=== PATIENT | male | born 1945 | race Caucasian/White ===

== ENCOUNTER 2020-11-23 16:41 | Observation (INO) | payer MEDICARE ==
[2020-11-23 17:17] LABS: #Eosinphils 0.4 10x3/uL (0.0-0.5); #Monocytes 1.8 10x3/uL (0.0-1.1); #Neutrophils 6.6 10x3/uL (1.5-8.4); %Basophils 0.4 % (0.0-2.0); %Eosinophils 3.8 % (0.0-6.0); %Lymphocytes 18.7 % (18.0-47.0); %Monocytes 16.3 % (0.0-10.0); %Neutrophils 60.3 % (40.0-75.0); Hemoglobin 12.9 g/dL (13.5-17.5); Mean Corpuscular HGB CONC 33.4 g/dL (32.0-36.0); Mean Corpuscular Hemoglobin 32.9 pg (27.0-33.0); Mean Corpuscular Volume 98.5 fl (81.2-95.1); Mean Platelet Volume 9.2 fl (7.4-10.4); Platelet Count 217 10x3/uL (150-450); RBC Distribution Width 14.8 % (11.5-14.5); Red Blood Cell (RBC) Count 3.92 10x6/uL (4.32-5.72)
[2020-11-23 17:28] LABS: ALT (SGPT) 13 U/L (8-55); AST (SGOT) 20 U/L (5-34); Albumin 4.3 g/dL (3.4-4.8); Alkaline Phosphatase 41 U/L (40-110); Anion Gap 15 mmol/L (10-20); BUN (Urea Nitrogen) 40 mg/dL (8.4-25.7); Bilirubin, Total 0.6 mg/dL (0.2-1.2); Calc. Creatinine Clearance 0 mL/min (70-130); Calcium 9.1 mg/dL (7.8-10.44); Carbon Dioxide 22 mmol/L (23-31); Chloride 101 mmol/L (98-107); Globulin 2.5 g/dL (2.4-3.5); Glucose 95 mg/dL (83-110); Potassium 4.2 mmol/L (3.5-5.1); Protein, Total 6.8 g/dL (5.8-8.1); Sodium 134 mmol/L (136-145)
[2020-11-23 17:29] LABS: Prothrombin Time 11.4 sec (9.5-12.1)
[2020-11-23 18:16] LABS: Bilirubin Neg (Negative); Blood, Urine Negative (Negative); Clarity Clear (Clear); Glucose, Urine (Dipstick) Normal (Negative); Ketone, Urine Negative (Negative); Leukocyte Negative (Negative); Nitrite Negative (Negative); Protein, Urine (Dipstick) Negative (Neg-Trace); Specific Gravity, Urine 1.005 (1.002-1.036); Urobilinogen Normal mg/dL (Less than 2)
[2020-11-23] MEDS ORDERED: Aspirin Chewable 81 MG TAB ONE (19:24)
[2020-11-23] MEDS ORDERED: Senokot S 8.6-50 MG TAB PO PRN (21:17)
[2020-11-23] MEDS ORDERED: Ondansetron PF 4 MG/2 ML Vial IVP PRN (21:17)
[2020-11-23] MEDS ORDERED: Acetaminophen 325 MG TAB PO PRN (21:17)
[2020-11-23] MEDS ORDERED: Guaifenesin DM 100-10/5 ML UDCUP PO PRN (21:17)
[2020-11-23] MEDS ORDERED: Calcium Carbonate 500 MG ChewTAB PO PRN (21:17)
[2020-11-23] MEDS ORDERED: ACETAMINOPHEN WITH CODEINE PO PRN (21:19)
[2020-11-23] MEDS ORDERED: Ventolin HFA Inhaler 60 PUFF INHALER INH PRN (21:19)
[2020-11-23] MEDS ORDERED: Sodium Chloride 0.9% 500 ML IV SCH (21:30)
[2020-11-24 05:59] VITALS: BMI 23.3
[2020-11-24 06:20] LABS: Anion Gap 13 mmol/L (10-20); BUN (Urea Nitrogen) 36 mg/dL (8.4-25.7); Calc. Creatinine Clearance 40 mL/min (70-130); Calcium 9.2 mg/dL (7.8-10.44); Carbon Dioxide 22 mmol/L (23-31); Cardiac Risk 2.6 (Less than 4.5); Chloride 106 mmol/L (98-107); Cholesterol 82 mg/dl (< 200 Desired); Glucose 97 mg/dL (83-110); HDL Cholesterol 31 mg/dL (>60 Neg Risk); LDL Cholesterol, Calculated 32 mg/dL; Potassium 3.8 mmol/L (3.5-5.1); Sodium 137 mmol/L (136-145); Triglycerides 93 mg/dL (Less than 150)
[2020-11-24] MEDS ORDERED: FLUOROMETHOLONE EA EYE SCH (09:00)
[2020-11-24] MEDS ORDERED: Topiramate 25 MG TAB PO SCH (09:00)
[2020-11-24] MEDS ORDERED: Enoxaparin Sodium 40 MG/0.4 ML SYRINGE SC SCH (09:00)
[2020-11-24] MEDS ORDERED: Atenolol 25 MG TAB PO SCH (09:00)
[2020-11-24] MEDS ORDERED: Fenofibrate 48 MG TAB PO SCH (09:00)
[2020-11-24] MEDS ORDERED: Gabapentin 300 MG CAP PO SCH (09:00)
[2020-11-24] MEDS ORDERED: [UNRECOGNIZED DRUG - OTHER] INH SCH (09:00)
[2020-11-24] MEDS ORDERED: Sodium Chloride 0.9% 1,000 ML IV SCH (09:30)
[2020-11-24] MEDS ORDERED: ACETAMINOPHEN WITH CODEINE PO PRN (12:30)
[2020-11-24 13:08] LABS: SARS-CoV-2 PCR by NAA Not Detected (NotDetected)
[2020-11-24] MEDS ORDERED: Atorvastatin Calcium 10 MG TAB PO SCH (21:00)
[2020-11-24 22:35] VITALS: BP 116/72; TEMP 97.1
== END 2020-11-24 17:00 | disposition home or self-care (01) ==
LOC: CSHERS 16:41 → CSHTELE 22:11
PROVIDERS: ADMIT Student in an Organized Health Care Education/Training Program; ATTEND Internal Medicine
DX: G45.9 Transient cerebral ischemic attack, unspecified (principal); N18.32 Chronic kidney disease, stage 3b; Z79.899 Other long term (current) drug therapy; K31.84 Gastroparesis; K26.9 Duodenal ulcer, unspecified as acute or chronic, without hemorrhage or perforation; G89.4 Chronic pain syndrome; E78.5 Hyperlipidemia, unspecified; Z20.822 Contact with and (suspected) exposure to COVID-19
CPT/HCPCS: 70450; 71045; 74176; 80048; 80053; 80061; 81003; 84443; 84484; 85025; 85610; 85730; 93005; 93306; 93880; 96372; 97116; 97139; 99285; G0378 ×2; U0003; U0005; 36415; 87635; J1650; J7030

== ENCOUNTER 2020-12-20 09:05 | Outpatient (CLI) | payer MEDICARE | END 2020-12-20 09:06 | disposition home or self-care (01) | LOC: CSHRAD 09:05 | PROVIDERS: ATTEND Internal Medicine | DX: K21.00 Gastro-esophageal reflux disease with esophagitis, without bleeding (principal) | CPT/HCPCS: 74018 ==

== ENCOUNTER 2022-05-23 17:30 | Inpatient (IN) | payer MEDICARE ==
[2022-05-23 19:40] LABS: #Basophils 0.1 10x3/uL (0.0-0.2); #Monocytes 0.9 10x3/uL (0.0-1.1); #Neutrophils 5.9 10x3/uL (1.5-8.4); %Basophils 0.6 % (0.0-2.0); %Eosinophils 0.2 % (0.0-6.0); %Lymphocytes 17.5 % (18.0-47.0); %Monocytes 10.3 % (0.0-10.0); Hemoglobin 14.2 g/dL (13.5-17.5); Mean Corpuscular HGB CONC 34.5 g/dL (32.0-36.0); Mean Corpuscular Hemoglobin 34.6 pg (27.0-33.0); Mean Corpuscular Volume 100.5 fl (81.2-95.1); Mean Platelet Volume 9.8 fl (7.4-10.4); Platelet Count 255 10x3/uL (150-450); RBC Distribution Width 12.3 % (11.5-14.5); White Blood Cell (WBC) Count 8.4 10x3/uL (3.5-10.5)
[2022-05-23 20:05] LABS: ALT (SGPT) 16 U/L (8-55); AST (SGOT) 28 U/L (5-34); Albumin 4.6 g/dL (3.4-4.8); Alkaline Phosphatase 35 U/L (40-110); Anion Gap 20 mmol/L (10-20); BUN (Urea Nitrogen) 37 mg/dL (8.4-25.7); Bilirubin, Total 0.4 mg/dL (0.2-1.2); CK (CPK) 142 U/L (30-200); Calc. Creatinine Clearance 0 mL/min (70-130); Calcium 10.2 mg/dL (7.8-10.44); Carbon Dioxide 19 mmol/L (23-31); Chloride 104 mmol/L (98-107); Estimated GFR 45; Globulin 3.5 g/dL (2.4-3.5); Glucose 84 mg/dL (83-110); Potassium 4.6 mmol/L (3.5-5.1); Protein, Total 8.1 g/dL (5.8-8.1); Sodium 138 mmol/L (136-145)
[2022-05-23 21:20] LABS: Bilirubin Neg (Negative); Blood, Urine 250 (Negative); Clarity Clear (Clear); Glucose, Urine (Dipstick) Normal (Negative); Ketone, Urine 15 mg/dL (Negative); Leukocyte Negative (Negative); Nitrite Negative (Negative); Protein, Urine (Dipstick) 100 mg/dl (Neg-Trace); Urobilinogen Normal mg/dL (Less than 2)
[2022-05-23] MEDS ORDERED: Acetaminophen/Codeine 30-300mg Tablet ONE (21:28)
[2022-05-23 21:45] LABS: Bacteria/HPF Rare-Few HPF (None Seen); Squamous Epithelial 0-3 HPF (0-3)
[2022-05-23] MEDS ORDERED: Acetaminophen 325 MG TAB ONE (22:10)
[2022-05-23] MEDS ORDERED: Cefepime 2 GM VIAL ONE (22:30)
[2022-05-23 22:48] LABS: Lactic Acid 1.2 mmol/L (0.5-2.2)
[2022-05-24 00:25] VITALS: BMI 21.2
[2022-05-24] MEDS ORDERED: Sodium Chloride 0.9% 1,000 ML IV SCH (01:30)
[2022-05-24] MEDS ORDERED: Enoxaparin Sodium 40 MG/0.4 ML SYRINGE SC SCH (01:30)
[2022-05-24 05:06] LABS: #Basophils 0.1 10x3/uL (0.0-0.2); #Eosinphils 0.9 10x3/uL (0.0-0.5); #Monocytes 1.1 10x3/uL (0.0-1.1); #Neutrophils 4.1 10x3/uL (1.5-8.4); %Basophils 0.6 % (0.0-2.0); %Eosinophils 11.1 % (0.0-6.0); %Lymphocytes 27.1 % (18.0-47.0); %Monocytes 12.9 % (0.0-10.0); %Neutrophils 47.9 % (40.0-75.0); Hemoglobin 14.7 g/dL (13.5-17.5); Mean Corpuscular Hemoglobin 34.4 pg (27.0-33.0); Mean Corpuscular Volume 101.2 fl (81.2-95.1); Mean Platelet Volume 9.6 fl (7.4-10.4); Platelet Count 226 10x3/uL (150-450); RBC Distribution Width 12.3 % (11.5-14.5); Red Blood Cell (RBC) Count 4.27 10x6/uL (4.32-5.72); White Blood Cell (WBC) Count 8.5 10x3/uL (3.5-10.5)
[2022-05-24 05:09] LABS: Anion Gap 17 mmol/L (10-20); BUN (Urea Nitrogen) 32 mg/dL (8.4-25.7); Calc. Creatinine Clearance 38 mL/min (70-130); Calcium 9.2 mg/dL (7.8-10.44); Carbon Dioxide 17 mmol/L (23-31); Chloride 107 mmol/L (98-107); Estimated GFR 54; Glucose 72 mg/dL (83-110); Magnesium 1.7 mg/dL (1.6-2.6); Potassium 3.9 mmol/L (3.5-5.1); Sodium 137 mmol/L (136-145)
[2022-05-24] MEDS ORDERED: Acetaminophen 325 MG TAB PO PRN (08:33)
[2022-05-24] MEDS ORDERED: Acetaminophen 650 MG Suppository PR PRN (08:33)
[2022-05-24] MEDS ORDERED: Topiramate 25 MG TAB PO SCH (09:00)
[2022-05-24] MEDS ORDERED: Fenofibrate 48 MG TAB PO SCH (09:00)
[2022-05-24] MEDS ORDERED: Gabapentin 100 MG CAP PO SCH (09:00)
[2022-05-24] MEDS ORDERED: BENAZEPRIL HCL 20 MG PO PRN (12:01)
[2022-05-24 15:16] VITALS: BP 145/69; TEMP 98.5
[2022-05-24] MEDS ORDERED: Aspirin 81 mg Enteric Coated Tablet PO SCH (21:00)
[2022-05-24] MEDS ORDERED: Acetaminophen/Codeine 30-300mg Tablet PO SCH (21:00)
[2022-05-25] MEDS ORDERED: Rosuvastatin 20 MG TAB PO SCH (09:00)
[2022-05-25] MEDS ORDERED: Atenolol 25 MG TAB PO SCH (09:00)
== END 2022-05-24 15:05 | disposition home or self-care (01) | DRG 92 ==
LOC: CSHERS 17:30 → CSHTELE 05-24
PROVIDERS: ADMIT Family Medicine; ATTEND Internal Medicine
DX: G92.8 Other toxic encephalopathy (principal); I67.89 Other cerebrovascular disease; I12.9 Hypertensive chronic kidney disease with stage 1 through stage 4 chronic kidney disease, or unspecified chronic kidney disease; G89.29 Other chronic pain; G43.909 Migraine, unspecified, not intractable, without status migrainosus; J44.9 Chronic obstructive pulmonary disease, unspecified; F41.9 Anxiety disorder, unspecified; I73.9 Peripheral vascular disease, unspecified; E78.5 Hyperlipidemia, unspecified; G47.33 Obstructive sleep apnea (adult) (pediatric); I77.9 Disorder of arteries and arterioles, unspecified; N18.30 Chronic kidney disease, stage 3 unspecified; Z86.73 Personal history of transient ischemic attack (TIA), and cerebral infarction without residual deficits; Z98.890 Other specified postprocedural states; Z90.49 Acquired absence of other specified parts of digestive tract; Z87.891 Personal history of nicotine dependence; Z88.1 Allergy status to other antibiotic agents; Z88.8 Allergy status to other drugs, medicaments and biological substances; Z79.82 Long term (current) use of aspirin; Z79.899 Other long term (current) drug therapy
CPT/HCPCS: 36415; 51701; 70450; 71045; 80048; 80053; 81003; 81015; 82140; 82550; 83605; 83735; 84484; 85025; 87040; 87086; 93005; 96374; J0692; J1650; J7050; U0003; U0005

== ENCOUNTER 2022-09-03 06:14 | Inpatient (IN) | payer MEDICARE ==
[2022-09-03] MEDS ORDERED: Aspirin Chewable 81 MG TAB ONE (07:00)
[2022-09-03] MEDS ORDERED: Heparin 10,000 UNITS/ 10 ML VIAL ONE (07:05)
[2022-09-03] MEDS ORDERED: Lidocaine 1% (PF) 30 ML VIAL ONE (07:05)
[2022-09-03] MEDS ORDERED: Sodium Chloride 0.9% 1,000 ML ONE (07:06)
[2022-09-03] MEDS ORDERED: PHENYLEPHRINE-NS 100 MCG/ML 10 ML SYRINGE ONE (07:07)
[2022-09-03] MEDS ORDERED: Atropine Sulfate 0.4 mg/1 ml Vial ONE (07:07)
[2022-09-03] MEDS ORDERED: Phenylephrine 40 MG/NS 250 ML 250 ML ONE (07:20)
[2022-09-03 07:26] LABS: #Basophils 0.1 10x3/uL (0.0-0.2); #Eosinphils 0.1 10x3/uL (0.0-0.5); #Monocytes 1.5 10x3/uL (0.0-1.1); #Neutrophils 5.8 10x3/uL (1.5-8.4); %Basophils 0.5 % (0.0-2.0); %Lymphocytes 25.1 % (18.0-47.0); %Monocytes 14.9 % (0.0-10.0); %Neutrophils 57.3 % (40.0-75.0); Hemoglobin 14.1 g/dL (13.5-17.5); Mean Corpuscular HGB CONC 34.2 g/dL (32.0-36.0); Mean Corpuscular Hemoglobin 34.4 pg (27.0-33.0); Mean Corpuscular Volume 100.5 fl (81.2-95.1); Mean Platelet Volume 10.2 fl (7.4-10.4); Platelet Count 277 10x3/uL (150-450); RBC Distribution Width 13.6 % (11.5-14.5)
[2022-09-03 07:36] LABS: ALT (SGPT) 31 U/L (8-55); AST (SGOT) 37 U/L (5-34); Albumin 4.7 g/dL (3.4-4.8); Alkaline Phosphatase 47 U/L (40-110); Anion Gap 14 mmol/L (10-20); BUN (Urea Nitrogen) 43 mg/dL (8.4-25.7); Bilirubin, Total 0.2 mg/dL (0.2-1.2); Calc. Creatinine Clearance 0 mL/min (70-130); Calcium 10.5 mg/dL (7.8-10.44); Carbon Dioxide 25 mmol/L (23-31); Chloride 100 mmol/L (98-107); Estimated GFR 50; Globulin 3.6 g/dL (2.4-3.5); Glucose 115 mg/dL (83-110); Protein, Total 8.3 g/dL (5.8-8.1); Sodium 135 mmol/L (136-145)
[2022-09-03 07:45] LABS: INR-International Normal Ratio 0.9; Prothrombin Time 10.3 sec (9.5-12.1)
[2022-09-03] MEDS ORDERED: Fentanyl 100 MCG/2 ML VIAL ONE (08:46)
[2022-09-03] MEDS ORDERED: Midazolam HCl 2 mg/2 ml Vial ONE (08:47)
[2022-09-03] MEDS ORDERED: Protamine Sulfate 50 MG/5 ML VIAL ONE (10:00)
[2022-09-03] MEDS ORDERED: Clopidogrel Bisulfate 300 MG TAB ONE (10:15)
[2022-09-03] MEDS ORDERED: Mag-Al 1200 mg/1200 mg/30 ML UDCUP PO PRN (10:21)
[2022-09-03] MEDS ORDERED: Milk Of Magnesia 30 ML UDCUP PO PRN (10:21)
[2022-09-03] MEDS ORDERED: Ventolin HFA Inhaler 60 PUFF INHALER INH PRN (10:24)
[2022-09-03] MEDS ORDERED: BENAZEPRIL HCL 20 MG PO PRN (10:24)
[2022-09-03] MEDS: Ipratropium/Albuterol 3 ML NEB NEB SCH ×2 (13:00→20:50)
[2022-09-03] MEDS: Sodium Chloride 0.9% 1,000 ML IV SCH ×2 (13:04→22:47)
[2022-09-03] MEDS ORDERED: Iopamidol 300 61% 100 ML VIAL FS ONE (14:28)
[2022-09-03] MEDS: Gabapentin 300 MG CAP PO SCH ×2 (15:05→20:21)
[2022-09-03] MEDS: Topiramate 25 MG TAB PO SCH (20:21)
[2022-09-03 20:54] LABS: SARS-CoV-2 NAA Rapid Test Not Detected (NotDetected)
[2022-09-03] MEDS ORDERED: Aspirin 81 mg Enteric Coated Tablet PO SCH (21:00)
[2022-09-04] MEDS: Ipratropium/Albuterol 3 ML NEB NEB SCH ×3 (01:20→13:07)
[2022-09-04 04:44] LABS: Hemoglobin 9.3 g/dL (13.5-17.5); Mean Corpuscular HGB CONC 33.6 g/dL (32.0-36.0); Mean Corpuscular Hemoglobin 34.4 pg (27.0-33.0); Mean Corpuscular Volume 102.6 fl (81.2-95.1); Mean Platelet Volume 9.7 fl (7.4-10.4); Platelet Count 189 10x3/uL (150-450); White Blood Cell (WBC) Count 9.9 10x3/uL (3.5-10.5)
[2022-09-04 04:58] LABS: MDiff Complete? YES
[2022-09-04 05:01] LABS: ALT (SGPT) 20 U/L (8-55); AST (SGOT) 24 U/L (5-34); Albumin 3.4 g/dL (3.4-4.8); Alkaline Phosphatase 49 U/L (40-110); Anion Gap 10 mmol/L (10-20); BUN (Urea Nitrogen) 29 mg/dL (8.4-25.7); Bilirubin, Total 0.1 mg/dL (0.2-1.2); Calc. Creatinine Clearance 43 mL/min (70-130); Calcium 8.6 mg/dL (7.8-10.44); Carbon Dioxide 22 mmol/L (23-31); Chloride 111 mmol/L (98-107); Estimated GFR 64; Globulin 2.4 g/dL (2.4-3.5); Glucose 121 mg/dL (83-110); Potassium 4.4 mmol/L (3.5-5.1); Protein, Total 5.8 g/dL (5.8-8.1); Sodium 139 mmol/L (136-145)
[2022-09-04 05:14] LABS: Band 1 % (5-11); Eosinophils 1 % (0-10); Lymphocytes 23 % (21-51); Monocytes 12 % (0-10); Neutrophil 63 % (42-75); Nucleated RBC 1 % (0); Platelet Morphology Comment Appears Adequate
[2022-09-04 06:23] VITALS: BMI 20.3
[2022-09-04 06:26] LABS: #Eosinphils 0.2 10x3/uL (0.0-0.5); #Monocytes 1.6 10x3/uL (0.0-1.1); #Neutrophils 6.8 10x3/uL (1.5-8.4); %Basophils 0.4 % (0.0-2.0); %Eosinophils 1.3 % (0.0-6.0); %Lymphocytes 23.1 % (18.0-47.0); %Monocytes 13.8 % (0.0-10.0); %Neutrophils 60.1 % (40.0-75.0); Hemoglobin 9.5 g/dL (13.5-17.5); Mean Corpuscular HGB CONC 33.3 g/dL (32.0-36.0); Mean Corpuscular Hemoglobin 34.4 pg (27.0-33.0); Mean Corpuscular Volume 103.3 fl (81.2-95.1); Platelet Count 193 10x3/uL (150-450); RBC Distribution Width 14.1 % (11.5-14.5); Red Blood Cell (RBC) Count 2.76 10x6/uL (4.32-5.72); White Blood Cell (WBC) Count 11.3 10x3/uL (3.5-10.5)
[2022-09-04] MEDS ORDERED: Atenolol 25 MG TAB PO SCH (09:00)
[2022-09-04] MEDS ORDERED: Aspirin Chewable 81 MG TAB PO SCH (09:00)
[2022-09-04] MEDS ORDERED: Clopidogrel Bisulfate 75 MG TAB PO SCH (09:00)
[2022-09-04] MEDS ORDERED: DULoxetine 30 MG CAP PO SCH (09:00)
[2022-09-04] MEDS ORDERED: Rosuvastatin 20 MG TAB PO SCH (09:00)
[2022-09-04] MEDS ORDERED: FLUOROMETHOLONE EA EYE SCH (09:00)
[2022-09-04] MEDS: Topiramate 25 MG TAB PO SCH (09:14)
[2022-09-04] MEDS: Acetaminophen/Codeine 30-300mg Tablet PO PRN ×2 (09:16→13:33)
[2022-09-04] MEDS: Gabapentin 300 MG CAP PO SCH (09:17)
[2022-09-04] MEDS: Sodium Chloride 0.9% 1,000 ML IV SCH (14:02)
== END 2022-09-04 16:53 | disposition home or self-care (01) | DRG 36 ==
LOC: CSHSDC 06:14 → CSHICU 10:19
PROVIDERS: ADMIT Internal Medicine Cardiovascular Disease; ATTEND Internal Medicine Cardiovascular Disease
PROC: 037J34Z Dilation of Left Common Carotid Artery with Drug-eluting Intraluminal Device, Percutaneous Approach (ICD-10-PCS; principal; 2022-09-03)
PROC: 037L34Z Dilation of Left Internal Carotid Artery with Drug-eluting Intraluminal Device, Percutaneous Approach (ICD-10-PCS; 2022-09-03)
PROC: B4101ZZ Fluoroscopy of Abdominal Aorta using Low Osmolar Contrast (ICD-10-PCS; 2022-09-03)
PROC: B3151ZZ Fluoroscopy of Bilateral Common Carotid Arteries using Low Osmolar Contrast (ICD-10-PCS; 2022-09-03)
PROC: B3181ZZ Fluoroscopy of Bilateral Internal Carotid Arteries using Low Osmolar Contrast (ICD-10-PCS; 2022-09-03)
DX: I65.23 Occlusion and stenosis of bilateral carotid arteries (principal); J44.9 Chronic obstructive pulmonary disease, unspecified; Z20.822 Contact with and (suspected) exposure to COVID-19; Z88.8 Allergy status to other drugs, medicaments and biological substances; Z88.1 Allergy status to other antibiotic agents; G89.29 Other chronic pain; M54.9 Dorsalgia, unspecified; I10 Essential (primary) hypertension; E78.5 Hyperlipidemia, unspecified; G47.33 Obstructive sleep apnea (adult) (pediatric); G43.909 Migraine, unspecified, not intractable, without status migrainosus
CPT/HCPCS: 36223; 36227; 36415; 37215; 80053; 85025; 85347; 85610; 93005; 93010; 94640; 99152; 99153; C1760; C1769; C1876; C1884; C1894; J0461; J1644; J2001; J2250; J2720; J3010; J7050; J7620; Q9967; U0002

== ENCOUNTER 2022-09-06 10:15 | Emergency (ER) | payer MEDICARE ==
[2022-09-06] MEDS ORDERED: Iopamidol 370 76% 100 ML VIAL ONE (10:54)
[2022-09-06 11:27] LABS: #Eosinphils 0.3 10x3/uL (0.0-0.5); #Monocytes 1.3 10x3/uL (0.0-1.1); #Neutrophils 5.9 10x3/uL (1.5-8.4); %Basophils 0.3 % (0.0-2.0); %Eosinophils 3.1 % (0.0-6.0); %Lymphocytes 21.4 % (18.0-47.0); %Neutrophils 60.3 % (40.0-75.0); Hemoglobin 7.4 g/dL (13.5-17.5); Mean Corpuscular HGB CONC 33.2 g/dL (32.0-36.0); Mean Corpuscular Hemoglobin 34.7 pg (27.0-33.0); Mean Corpuscular Volume 104.7 fl (81.2-95.1); Mean Platelet Volume 9.9 fl (7.4-10.4); Platelet Count 194 10x3/uL (150-450); RBC Distribution Width 14.2 % (11.5-14.5); Red Blood Cell (RBC) Count 2.13 10x6/uL (4.32-5.72); White Blood Cell (WBC) Count 9.7 10x3/uL (3.5-10.5)
[2022-09-06 11:38] LABS: INR-International Normal Ratio 0.9; PTT 22.2 sec (22.0-33.0)
[2022-09-06 11:41] LABS: ALT (SGPT) 22 U/L (8-55); AST (SGOT) 32 U/L (5-34); Albumin 3.8 g/dL (3.4-4.8); Alkaline Phosphatase 54 U/L (40-110); Anion Gap 13 mmol/L (10-20); BUN (Urea Nitrogen) 36 mg/dL (8.4-25.7); Bilirubin, Total 0.2 mg/dL (0.2-1.2); Calc. Creatinine Clearance 0 mL/min (70-130); Calcium 9.4 mg/dL (7.8-10.44); Carbon Dioxide 23 mmol/L (23-31); Chloride 102 mmol/L (98-107); Estimated GFR 57; Globulin 2.1 g/dL (2.4-3.5); Glucose 126 mg/dL (83-110); Potassium 3.8 mmol/L (3.5-5.1); Protein, Total 5.9 g/dL (5.8-8.1); Sodium 134 mmol/L (136-145)
== END 2022-09-06 20:26 | disposition short-term general hospital (02) ==
LOC: CSHERS 10:15
DX: I72.4 Aneurysm of artery of lower extremity (principal); I10 Essential (primary) hypertension; J44.9 Chronic obstructive pulmonary disease, unspecified; Z87.891 Personal history of nicotine dependence
CPT/HCPCS: 36415; 75635; 80053; 85025; 85610; 85730; 86850; 86900; 86901; 93923; J1650

== ENCOUNTER 2023-01-27 08:34 | Emergency (ER) | payer MEDICARE ==
[2023-01-27] MEDS ORDERED: Iopamidol 370 76% 100 ML VIAL ONE (08:43)
[2023-01-27 09:46] LABS: #Eosinphils 0.2 10x3/uL (0.0-0.5); #Monocytes 1.3 10x3/uL (0.0-1.1); #Neutrophils 6.3 10x3/uL (1.5-8.4); %Basophils 0.3 % (0.0-2.0); %Eosinophils 1.8 % (0.0-6.0); %Lymphocytes 15.4 % (18.0-47.0); %Monocytes 14.1 % (0.0-10.0); %Neutrophils 67.9 % (40.0-75.0); Hemoglobin 13.9 g/dL (13.5-17.5); Mean Corpuscular HGB CONC 33.5 g/dL (32.0-36.0); Mean Corpuscular Hemoglobin 32.6 pg (27.0-33.0); Mean Corpuscular Volume 97.4 fl (81.2-95.1); Mean Platelet Volume 9.8 fl (7.4-10.4); Platelet Count 286 10x3/uL (150-450); Red Blood Cell (RBC) Count 4.26 10x6/uL (4.32-5.72); White Blood Cell (WBC) Count 9.3 10x3/uL (3.5-10.5)
[2023-01-27 09:58] LABS: ALT (SGPT) 20 U/L (8-55); AST (SGOT) 30 U/L (5-34); Albumin 4.6 g/dL (3.4-4.8); Alkaline Phosphatase 57 U/L (40-110); Anion Gap 17 mmol/L (10-20); BUN (Urea Nitrogen) 33 mg/dL (8.4-25.7); Bilirubin, Total 0.4 mg/dL (0.2-1.2); Calc. Creatinine Clearance 0 mL/min (70-130); Calcium 9.4 mg/dL (7.8-10.44); Carbon Dioxide 23 mmol/L (23-31); Chloride 101 mmol/L (98-107); Estimated GFR 50; Globulin 3.8 g/dL (2.4-3.5); Glucose 164 mg/dL (83-110); Potassium 3.8 mmol/L (3.5-5.1); Protein, Total 8.4 g/dL (5.8-8.1); Sodium 137 mmol/L (136-145)
== END 2023-01-27 12:13 | disposition home or self-care (01) ==
LOC: CSHERS 08:34
DX: M79.671 Pain in right foot (principal); I73.9 Peripheral vascular disease, unspecified; J44.9 Chronic obstructive pulmonary disease, unspecified; I12.9 Hypertensive chronic kidney disease with stage 1 through stage 4 chronic kidney disease, or unspecified chronic kidney disease; N18.9 Chronic kidney disease, unspecified; Z87.891 Personal history of nicotine dependence
CPT/HCPCS: 75635; 80053; 85025; Q9967

== ENCOUNTER → 2023-07-04 | Day surgery (SDC) | payer MEDICARE | LOC: CSHSDC/OP 13:17 | PROVIDERS: ATTEND Family Medicine | DX: R14.0 Abdominal distension (gaseous) (principal); R10.9 Unspecified abdominal pain | CPT/HCPCS: 74018 ==

== ENCOUNTER 2023-07-26 11:56 | Outpatient (CLI) | payer MEDICARE | END 2023-07-26 11:57 | disposition home or self-care (01) | LOC: CSHRAD 11:56 | PROVIDERS: ATTEND Family Medicine | DX: R14.0 Abdominal distension (gaseous) (principal); R19.5 Other fecal abnormalities | CPT/HCPCS: 36415; 74019; 80053; 85025 ==

== ENCOUNTER 2023-08-13 16:10 | Emergency (ER) | payer MEDICARE | END 2023-08-13 20:02 | disposition home or self-care (01) | LOC: CSHERS 16:10 | DX: R22.41 Localized swelling, mass and lump, right lower limb (principal); I10 Essential (primary) hypertension; J44.9 Chronic obstructive pulmonary disease, unspecified; Z86.73 Personal history of transient ischemic attack (TIA), and cerebral infarction without residual deficits; Z87.891 Personal history of nicotine dependence ==

== ENCOUNTER 2023-09-28 09:29 | Emergency (ER) | payer MEDICARE ==
[2023-09-28 10:28] LABS: #Basophils 0.1 10x3/uL (0.0-0.2); #Eosinphils 0.2 10x3/uL (0.0-0.5); #Monocytes 1.2 10x3/uL (0.0-1.1); #Neutrophils 4.9 10x3/uL (1.5-8.4); %Basophils 0.7 % (0.0-2.0); %Eosinophils 2.2 % (0.0-6.0); %Lymphocytes 26.7 % (18.0-47.0); %Neutrophils 55.4 % (40.0-75.0); Hematocrit 36.4 % (38.8-50.0); Hemoglobin 12.1 g/dL (13.5-17.5); Mean Corpuscular HGB CONC 33.2 g/dL (32.0-36.0); Mean Corpuscular Volume 99.2 fl (81.2-95.1); Mean Platelet Volume 9.3 fl (7.4-10.4); Platelet Count 274 10x3/uL (150-450); RBC Distribution Width 12.9 % (11.5-14.5); Red Blood Cell (RBC) Count 3.67 10x6/uL (4.32-5.72); White Blood Cell (WBC) Count 8.8 10x3/uL (3.5-10.5)
[2023-09-28 10:42] LABS: ALT (SGPT) 24 U/L (8-55); AST (SGOT) 29 U/L (5-34); Albumin 4.2 g/dL (3.4-4.8); Alkaline Phosphatase 52 U/L (40-110); Anion Gap 13 mmol/L (10-20); BUN (Urea Nitrogen) 25 mg/dL (8.4-25.7); Bilirubin, Total 0.2 mg/dL (0.2-1.2); Calc. Creatinine Clearance 0 mL/min (70-130); Calcium 9.7 mg/dL (7.8-10.44); Carbon Dioxide 28 mmol/L (23-31); Chloride 99 mmol/L (98-107); Estimated GFR 62; Globulin 2.5 g/dL (2.4-3.5); Glucose 111 mg/dL (83-110); Potassium 4.8 mmol/L (3.5-5.1); Protein, Total 6.7 g/dL (5.8-8.1); Sodium 135 mmol/L (136-145)
[2023-09-28 10:44] LABS: Troponin I Less than 0.010 ng/mL (< 0.028)
[2023-09-28 11:27] LABS: Bilirubin Neg (Negative); Blood, Urine Negative (Negative); Clarity Clear (Clear); Glucose, Urine (Dipstick) Normal (Negative); Ketone, Urine Negative (Negative); Leukocyte Negative (Negative); Nitrite Negative (Negative); Protein, Urine (Dipstick) 30 mg/dl (Neg-Trace); Urobilinogen Normal mg/dL (Less than 2)
[2023-09-28 11:50] LABS: Bacteria/HPF None Seen HPF (None Seen); CAUTI Indications for Culture Pelvic or flank pain; RBC/HPF None Seen HPF (0-3); Squamous Epithelial 0-3 HPF (0-3); WBC/HPF None Seen HPF (0-3)
[2023-09-28 11:51] LABS: Urine Culture Reflex No No
== END 2023-09-28 12:04 | disposition home or self-care (01) ==
LOC: CSHERS 09:29
DX: I10 Essential (primary) hypertension (principal); J44.9 Chronic obstructive pulmonary disease, unspecified; Z86.73 Personal history of transient ischemic attack (TIA), and cerebral infarction without residual deficits; Z87.891 Personal history of nicotine dependence
CPT/HCPCS: 36415; 71045; 80053; 81001; 83880; 84484; 85025; 93005

== ENCOUNTER 2024-03-06 16:03 | Emergency (ER) | payer MEDICARE ==
[2024-03-06] MEDS ORDERED: Morphine 4 MG/ML VIAL ONE (16:45)
[2024-03-06] MEDS ORDERED: Ondansetron ODT 4 MG TAB ONE (16:45)
== END 2024-03-06 18:26 | disposition home or self-care (01) ==
LOC: CSHERS 16:03
DX: S52.501A Unspecified fracture of the lower end of right radius, initial encounter for closed fracture (principal); I10 Essential (primary) hypertension; Z87.891 Personal history of nicotine dependence; W19.XXXA Unspecified fall, initial encounter
CPT/HCPCS: 73090; 73110; J2270; Q0162; 29125; 96374

== ENCOUNTER 2025-05-30 10:58 | Inpatient (IN) | payer MEDICARE ==
[2025-05-30 11:55] LABS: #Basophils 0.03 10x3/uL (0.0-0.2); #Eosinophils 0.04 10x3/uL (0.0-0.5); #Monocytes 1.14 10x3/uL (0.0-1.1); #Neutrophils 10.11 10x3/uL (1.5-8.4); %Basophils 0.2 % (0.0-2.0); %Eosinophils 0.3 % (0.0-6.0); %Lymphocytes 7.3 % (18.0-47.0); %Monocytes 9.3 % (0.0-10.0); %Neutrophils 82.6 % (40.0-75.0); Hematocrit 31.2 % (38.8-50.0); Hemoglobin 10.4 g/dL (13.5-17.5); Mean Corpuscular Hemoglobin 33.9 pg (27.0-33.0); Mean Corpuscular Volume 101.6 fL (81.2-95.1); Platelet Count 225 10x3/uL (150-450); Red Blood Cell (RBC) Count 3.07 10x6/uL (4.32-5.72); White Blood Cell (WBC) Count 12.25 10x3/uL (3.5-10.5)
[2025-05-30 12:13] LABS: Troponin I Less than 0.010 ng/mL (< 0.028)
[2025-05-30 12:38] LABS: ALT (SGPT) 15 U/L (Less than 45); AST (SGOT) 26 U/L (11-34); Albumin 3.3 g/dL (3.1-4.5); Alkaline Phosphatase 40 U/L (40-110); Anion Gap 12 mmol/L (10-20); BUN (Urea Nitrogen) 35 mg/dL (8.4-25.7); Bilirubin, Total 0.4 mg/dL (0.3-1.2); Calc. Creatinine Clearance 0 mL/min (70-130); Calcium 8.3 mg/dL (7.8-10.44); Carbon Dioxide 24 mmol/L (23-31); Chloride 105 mmol/L (98-107); Globulin 3.0 g/dL (2.4-3.5); Glucose 98 mg/dL (83-110); Potassium 3.9 mmol/L (3.5-5.1); Sodium 137 mmol/L (136-145)
[2025-05-30 12:58] LABS: Magnesium 1.3 mg/dL (1.6-2.6)
[2025-05-30] MEDS ORDERED: Magnesium 2 GM/50 ML BAG (IN WATER) ONE (14:04)
[2025-05-30 14:38] LABS: Glucose, Urine (Dipstick) Normal (Negative); Leukocyte Negative (Negative); Protein, Urine (Dipstick) 100 mg/dl (Neg-Trace); Specific Gravity, Urine 1.005 (1.005-1.030)
[2025-05-30] MEDS ORDERED: cefTRIAXone (ROCEPHIN) 1 GM VIAL ONE (15:10)
[2025-05-30 15:27] LABS: CAUTI Indications for Culture Pelvic or flank pain; RBC/HPF None Seen HPF (0-3); WBC/HPF None Seen HPF (0-3)
[2025-05-30 15:28] LABS: Bacteria/HPF None Seen HPF (None Seen); Urine Culture Reflex No No
[2025-05-30 16:07] VITALS: BMI 20.2
[2025-05-30] MEDS ORDERED: Acetaminophen 325 MG TAB PO PRN (16:18)
[2025-05-30] MEDS ORDERED: Calcium Carbonate 500 MG ChewTAB PO PRN (16:18)
[2025-05-30] MEDS ORDERED: Ondansetron PF 4 MG/2 ML Vial IVP PRN (16:18)
[2025-05-30 16:23] LABS: Actual Bicarbonate (HCO3v) 25.5 mEq/L (22-28); Analyzer IN Cardio CS ICU; Base Excess -1.0 mEq/L (-2 - +2); Calcium, Ionized (venous) 1.11 mmol/L (1.16-1.32); Chloride (VBG) 102 mmol/L (98-106); Critical Notified Whom: COCJEF; Hematocrit-VBG 35 % (42.0-52.0); Hemoglobin (Hb) 11.8 g/dL (12.6-17.4); Potassium (VBG) 3.90 mmol/L (3.70-5.30); Puncture Site Other Site; RapidComm Collect By LAB; Sodium 138 mmol/L (133-146)
[2025-05-30] MEDS: FLU (Fluad Triv) 25-26 (65UP)PF 45 MCG/0.5 ML Syringe IM ONE (17:44)
[2025-05-30] MEDS: Magnesium 2 GM/50 ML(in water) 2 GM in Premix 1 BAG IVPB SCH (17:55)
[2025-05-31] MEDS: Pantoprazole 40 MG DR.TAB PO SCH (01:44)
[2025-05-31 05:36] LABS: #Basophils Less than 0.03 10x3/uL (0.0-0.2); #Eosinophils 0.22 10x3/uL (0.0-0.5); #Monocytes 1.38 10x3/uL (0.0-1.1); #Neutrophils 5.32 10x3/uL (1.5-8.4); %Basophils 0.2 % (0.0-2.0); %Eosinophils 2.7 % (0.0-6.0); %Lymphocytes 13.4 % (18.0-47.0); %Monocytes 17.1 % (0.0-10.0); %Neutrophils 66.2 % (40.0-75.0); Hematocrit 29.6 % (38.8-50.0); Hemoglobin 9.5 g/dL (13.5-17.5); Mean Corpuscular Hemoglobin 33.3 pg (27.0-33.0); Mean Corpuscular Volume 103.9 fL (81.2-95.1); Platelet Count 201 10x3/uL (150-450); Red Blood Cell (RBC) Count 2.85 10x6/uL (4.32-5.72); White Blood Cell (WBC) Count 8.05 10x3/uL (3.5-10.5)
[2025-05-31 05:57] LABS: Anion Gap 13 mmol/L (10-20); BUN (Urea Nitrogen) 29 mg/dL (8.4-25.7); Calc. Creatinine Clearance 32 mL/min (70-130); Calcium 8.3 mg/dL (7.8-10.44); Carbon Dioxide 24 mmol/L (23-31); Chloride 108 mmol/L (98-107); Glucose 97 mg/dL (83-110); Magnesium 1.8 mg/dL (1.6-2.6); Potassium 3.7 mmol/L (3.5-5.1); Sodium 141 mmol/L (136-145)
[2025-05-31 08:29] VITALS: BP 169/85; TEMP 99.1
[2025-05-31] MEDS: Rosuvastatin 20 MG TAB PO SCH (09:21)
[2025-05-31] MEDS: Aspirin 81 mg Enteric Coated Tablet PO SCH (09:21)
[2025-05-31] MEDS ORDERED: Magnesium 2 GM/50 ML(in water) 2 GM in Premix 1 BAG IVPB SCH (11:00)
[2025-05-31] MEDS ORDERED: Acetaminophen/Codeine 30-300mg Tablet PO SCH (14:00)
[2025-05-31] MEDS ORDERED: Azithromycin 500 MG in Sodium Chloride 0.9% 250 ML 250 ML IVPB SCH (17:00)
[2025-05-31] MEDS ORDERED: cefTRIAXone\\ROCEPHIN 1 GM in Sodium Chloride 0.9% 100 ML IVPB SCH (17:00)
[2025-05-31] MEDS ORDERED: Carvedilol 25 MG TAB PO SCH (21:00)
== END 2025-05-31 11:39 | disposition left against medical advice (07) | DRG 871 ==
LOC: CSHERS 10:58 → CSHTELE 14:55
PROVIDERS: ADMIT Family Medicine; ATTEND Family Medicine
DX: A41.9 Sepsis, unspecified organism (principal); G92.8 Other toxic encephalopathy; G93.41 Metabolic encephalopathy; J18.9 Pneumonia, unspecified organism; E87.20 Acidosis, unspecified; J44.0 Chronic obstructive pulmonary disease with (acute) lower respiratory infection; Z66 Do not resuscitate; F41.9 Anxiety disorder, unspecified; E78.5 Hyperlipidemia, unspecified; I12.9 Hypertensive chronic kidney disease with stage 1 through stage 4 chronic kidney disease, or unspecified chronic kidney disease; N18.9 Chronic kidney disease, unspecified; D63.1 Anemia in chronic kidney disease; G89.4 Chronic pain syndrome; Z86.73 Personal history of transient ischemic attack (TIA), and cerebral infarction without residual deficits; Z79.899 Other long term (current) drug therapy; Z87.891 Personal history of nicotine dependence; Z98.890 Other specified postprocedural states; Z23 Encounter for immunization; N18.30 Chronic kidney disease, stage 3 unspecified; E83.42 Hypomagnesemia; I73.9 Peripheral vascular disease, unspecified; Z88.1 Allergy status to other antibiotic agents; Z88.8 Allergy status to other drugs, medicaments and biological substances; Z88.0 Allergy status to penicillin; Z79.02 Long term (current) use of antithrombotics/antiplatelets; Z79.82 Long term (current) use of aspirin; R65.20 Severe sepsis without septic shock; E86.0 Dehydration; K52.9 Noninfective gastroenteritis and colitis, unspecified; T40.605A Adverse effect of unspecified narcotics, initial encounter; W06.XXXA Fall from bed, initial encounter; Y93.01 Activity, walking, marching and hiking; Z85.828 Personal history of other malignant neoplasm of skin; G47.30 Sleep apnea, unspecified
CPT/HCPCS: 36415; 70450; 71045; 80048; 80053; 81001; 82805; 83605; 83735; 83880; 84100; 84484; 85025; 87040; 87428; 93005; 94762; 96365; 96366; 96368; 96375; J0696; J2270; J3475; J7030